=== PATIENT | female | born 1995 | race Hispanic/Latino ===

== ENCOUNTER 2021-06-03 | Emergency (ER) | payer OTHER ==
[~2021-06-03] VITALS: Ht 162.6 cm; Wt 105.6 kg
[2021-06-03] MEDS ORDERED: GNP28TAB2 PO (00:14)
[2021-06-03 06:46] VITALS: BP 119/77
--- NOTE | 2021-06-03 07:19 | REPVR ---
PROCEDURE INFORMATION: Exam: US First Trimester, Transabdominal Exam date and time: 06/03/2021 5:58 AM Age: 26 years old Clinical indication: Lmp or gestational age (in weeks): 7; Antepartum complications; Bleeding; ; Additional info: [place] TECHNIQUE: Imaging protocol: Real-time transabdominal obstetrical ultrasound of the maternal pelvis and a first trimester , less than 14 weeks 0 days, with image documentation. COMPARISON: No relevant prior studies available. FINDINGS: Gestation: Single live intrauterine . Embryonic/ heart rate: heart rate 167 bpm. Extra-embryonic membranes/Placenta: Hypoechoic collection adjacent to the gestational sac measuring 1.9 x 0.7 x 1.4 cm, consistent with subchorionic hemorrhage. Amniotic fluid: Amniotic fluid is normal for gestational age. BIOMETRY: Gestational age (AUA): Ultrasound gestational age 7 weeks 5 days. Estimated due date (AUA): CHANDRA 01/15/2022. [place]-Rump length: Mean crown-rump length 1.4 cm. MATERNAL: Uterus: Uterus measures 10.0 x 4.8 x 6.5 cm. No myometrial mass. Cervix: Unremarkable. Right adnexa: Right ovary measures 5.3 x 4.1 x 3.9 cm and contains a 3.9 x 2.9 x 3.5 cm cyst. No adnexal mass. Left adnexa: Left ovary measures 3.1 x 1.4 x 1.1 cm and is unremarkable. No adnexal mass. Intraperitoneal space: No free fluid. IMPRESSION: 1. Single live IUP with ultrasound gestational age 7 weeks 5 days. 2. CHANDRA 01/15/2022. 3. Subchorionic hemorrhage measuring 1.9 x 0.7 x 1.4 cm. 4. Right ovarian cyst measuring 3.9 cm. Electronically signed by: Isai Saunders On 06/03/2021 07:18:13 AM
== END 2021-06-03 06:53 | disposition home or self-care (01) ==
LOC: M ED
DX: O20.0 Threatened abortion (principal); O20.8 Other hemorrhage in early pregnancy; O34.81 Maternal care for other abnormalities of pelvic organs, first trimester; Z3A.01 Less than 8 weeks gestation of pregnancy

== ENCOUNTER 2021-08-26 13:42 | Emergency (ER) | payer OTHER ==
[~2021-08-26] VITALS: Ht 162.6 cm; Wt 105.7 kg
[~2021-08-26 13:42] MED LIST: GNP28TAB2 PO
--- OUTSIDE RECORDS SUMMARY | 2021-08-26 13:48 | CCD ---
Author Author [facility] Organization [facility] Address Unknown Phone Unavailable Support Name Relationship Address Phone UE Next Of Kin Unknown Unavailable NEDA VALE Next Of Kin [address], [place] [id number] Re-disclosure Warning The records that you are about to access may contain information from federally-assisted alcohol or drug abuse programs. If such information is present, then the following federally mandated warning applies: This information has been disclosed to you from records protected by federal confidentiality rules (42 CFR part 2). The federal rules prohibit you from making any further disclosure of this information unless further disclosure is expressly permitted by the written consent of the person to whom it pertains or as otherwise permitted by 42 CFR part 2. A general authorization for the release of medical or other information is NOT sufficient for this purpose. The Federal rules restrict any use of the information to criminally investigate or prosecute any alcohol or drug abuse patient.The records that you are about to access may contain highly sensitive health information, the redisclosure of which is protected by Article 27-F of the [facility] Public Health law. If you continue you may have access to information: Regarding HIV / AIDS; Provided by facilities licensed or operated by the [facility] Office of Mental Health; or Provided by the [facility] Office for People With Developmental Disabilities. If such information is present, then the following [facility] mandated warning applies: This information has been disclosed to you from confidential records which are protected by state law. State law prohibits you from making any further disclosure of this information without the specific written consent of the person to whom it pertains, or as otherwise permitted by law. Any unauthorized further disclosure in violation of state law may result in a fine or snf sentence or both. A general authorization for the release of medical or other information is NOT sufficient authorization for further disc losure. Medications No Information Insurance Providers Payer name Policy type / Coverage type Policy ID Covered republican ID Covered republican's relationship to boone Policy Boone Plan Information [facility] [id number] [facility] [id number] [facility] HUMA[employer] - O/P [id number] 01 [id number] Problems, Conditions, and Diagnoses No Information Surgeries/Procedures No Information Results No Information Social History No Information
[2021-08-26 20:52] LABS: RSV AMPLIFICATION NEGATIVE (NEGATIVE)
--- OUTSIDE RECORDS SUMMARY | 2021-08-26 21:49 | CCD ---
Author Author [facility] Organization [facility] Address Unknown Phone Unavailable Support Name Relationship Address Phone UE Next Of Kin Unknown Unavailable NEDA VALE Next Of Kin [address], [place] [id number] Re-disclosure Warning The records that you are [...] is protected by Article 27-F of the [facility] Public Health law. If you continue you may have access to information: Regarding HIV / AIDS; Provided by facilities licensed or operated by the [facility] Office of Mental Health; or Provided by the [facility] Office for People With Developmental Disabilities. If such information is present, then the following [facility] mandated warning applies: This information has [...] law may result in a fine or longterm sentence or both. A general authorization for the release of medical or other information is NOT sufficient authorization for further disc losure. Medications No Information Insurance Providers Payer name Policy type / Coverage type Policy ID Covered alliance party ID Covered alliance party's relationship to boone Policy Boone Plan Information [facility] [id number] [facility] [id number] [facility] [employer] - O/P [id number] 01 [id number] Problems, Conditions, and Diagnoses No Information Surgeries/Procedures No Information Results No Information Social History No Information
[2021-08-26 21:58] VITALS: O2SAT 97
[2021-08-26] MEDS ORDERED: ASPI81TA26 PO (22:25)
[2021-08-26 23:06] VITALS: BP 119/61
--- NOTE | 2021-08-26 23:26 | REPVR ---
PROCEDURE INFORMATION: Exam: XR Chest Exam date and time: 08/26/2021 10:40 PM Age: 26 years old Clinical indication: Cough; Additional info: Covid +, cough, SOB TECHNIQUE: Imaging protocol: XR of the chest. Views: 1 view. COMPARISON: No relevant prior studies available. FINDINGS: Lungs: Degree of lung inflation is normal. No evidence of pulmonary edema. No focal consolidation or parenchymal lung mass. Pleural spaces: No pleural effusion or pneumothorax. Heart/Mediastinum: Cardiac silhouette appears normal. No adenopathy or hilar mass. Bones/joints: Osseous structures show no concerning abnormality. IMPRESSION: No acute or focal cardiopulmonary process. Electronically signed by: Med Romero On 08/26/2021 23:26:06 PM
== END 2021-08-26 23:11 | disposition home or self-care (01) ==
LOC: M ED 13:42
DX: O98.512 Other viral diseases complicating pregnancy, second trimester (principal); U07.1 COVID-19; Z3A.19 19 weeks gestation of pregnancy; Z20.822 Contact with and (suspected) exposure to COVID-19; O99.512 Diseases of the respiratory system complicating pregnancy, second trimester

== ENCOUNTER → 2021-12-17 | Outpatient (CLI) | payer OTHER ==
[~2021-12-17] MED LIST changes: +ASPI81TA26 PO
== END ==
LOC: M RAD 10:21
PROVIDERS: ATTEND Obstetrics & Gynecology
DX: O99.213 Obesity complicating pregnancy, third trimester (principal); E66.9 Obesity, unspecified; Z3A.35 35 weeks gestation of pregnancy

== ENCOUNTER 2022-01-10 05:14 | Inpatient (IN) | payer OTHER ==
[2022-01-10] VITALS (31 sets, daily range): BP systolic 103–154; BP diastolic 56–99
[~2022-01-10] VITALS: Ht 162.6 cm; Wt 116.8 kg
[2022-01-10] MEDS ORDERED: FAMO40TA3 PO (05:35)
[2022-01-10 08:08] LABS: HEMATOCRIT 35.5 % (36.0-47.0); HEMOGLOBIN 11.9 g/dl (12.0-15.5); MEAN CORPUSCULAR HEMOGLOBIN 31.6 pg (27.0-33.0); MEAN CORPUSCULAR HGB CONC 33.5 g/dl (32.0-36.5); MEAN CORPUSCULAR VOLUME 94.2 fl (80.0-96.0); PLATELET COUNT, AUTOMATED 208 10^3/uL (150-450); RED BLOOD COUNT 3.77 10^6/uL (4.00-5.40); WHITE BLOOD COUNT 7.9 10^3/uL (4.0-10.0)
[2022-01-10] MEDS ORDERED: LIDOCAINE 1% MDV 20ML VIAL INFIL PRN (09:45)
[2022-01-10] MEDS ORDERED: OXYTOCIN DRIP 30 UNITS in IV 1 EA IV PRN ×4 (09:45)
[2022-01-10] MEDS ORDERED: CARBOPROST TROMETHAMINE 250 MCG/ML AMP IM PRN (09:45)
[2022-01-10] MEDS ORDERED: METHYLERGONOVINE MALEATE 0.2 MG/ML VIAL (J2210) IM PRN (09:45)
[2022-01-10] MEDS ORDERED: TRANEXAMIC ACID INJection 1,000 MG in NS 100 ML IV PRN (09:45)
[2022-01-10] MEDS ORDERED: OXYTOCIN DRIP 30 UNITS in IV 1 EA IV SCH (13:30)
[2022-01-10] MEDS: LR 1,000 ML IV SCH (14:58)
[2022-01-10] MEDS ORDERED: PROMETHAZINE INJ 25 MG/ML VIAL (J2550) IV ONE (23:20)
[2022-01-10] MEDS ORDERED: BUTORPHANOL 2 MG/ML INJ (J0595) IV ONE (23:20)
[2022-01-11] VITALS (9 sets, daily range): BP systolic 102–133; BP diastolic 55–92
[2022-01-11] MEDS ORDERED: FENTANYL 2MCG/ML ROPIVACAINE 0.2% IN 0.9% NACL 100ML IVBAG As Ordered ONE (00:07)
[2022-01-11] MEDS ORDERED: REFRIGERATOR IV KEYS XX PRN (00:25)
[2022-01-11] MEDS ORDERED: EPIDURAL COMMENT XX SCH (00:25)
[2022-01-11] MEDS ORDERED: ePHEDrine SULFATE 25 MG/5 ML(5MG/ML) SYRINGE IV PRN (00:25)
[2022-01-11] MEDS ORDERED: NALOXONE INJ 0.4MG/1ML VIAL (J2310 PER 1MG) IV PRN (00:25)
[2022-01-11] MEDS ORDERED: ONDANSETRON 4MG/2ML VIAL IV PRN ×2 (00:25→05:20)
[2022-01-11] MEDS ORDERED: diphenhydrAMINE 50MG/ML VIAL (J1200) IV PRN (00:25)
[2022-01-11] MEDS ORDERED: LACTATED RINGER'S 1000 ML IV PRN (00:25)
[2022-01-11] MEDS ORDERED: EPIDURAL/PCA KEYS XX PRN (00:25)
[2022-01-11] MEDS ORDERED: FENTANYL/ROPIVACAINE/NACL BAG 100 ML EPIDURAL SCH (00:25)
[2022-01-11] MEDS: LR 1,000 ML IV SCH (00:37)
[2022-01-11] MEDS ORDERED: ACETAMINOPHEN TAB 650MG DOSE (2X325MG) PO PRN ×2 (05:00→05:20)
[2022-01-11] MEDS ORDERED: ACETAMINOPHEN 500 MG TAB PO PRN ×2 (05:00→05:20)
[2022-01-11] MEDS ORDERED: MEASLES,MUMPS,RUBELLA VACCINE INJ (MMR-II) (90707) SC SCH ×2 (05:00→05:20)
[2022-01-11] MEDS ORDERED: DOCUSATE SODIUM 100MG CAPSULE PO PRN (05:00)
[2022-01-11] MEDS ORDERED: ANUSOL HC CREAM 30GM TOP PRN ×2 (05:00→05:20)
[2022-01-11] MEDS ORDERED: IBUPROFEN 600MG TAB PO PRN (05:00)
[2022-01-11] MEDS ORDERED: OXYTOCIN DRIP 30 UNITS in IV 1 EA IV SCH ×8 (05:00→05:20)
[2022-01-11] MEDS ORDERED: RHOGAM 300 MCG (1500 IU) INJ (J2790) IM SCH ×2 (05:00→05:20)
[2022-01-11] MEDS ORDERED: IBUPROFEN 800 MG TAB PO PRN (05:00)
[2022-01-11] MEDS ORDERED: DIBUCAINE 1% OINTMENT 30GM TOP PRN ×2 (05:00→05:20)
[2022-01-11] MEDS ORDERED: METHYLERGONOVINE MALEATE 0.2 MG TAB PO PRN (05:20)
[2022-01-11] MEDS ORDERED: PRENATAL VITAMINS CHEWABLE TABLET PO SCH (09:00)
[2022-01-11] MEDS: PRENATAL VITAMINS CHEWABLE TABLET PO SCH (09:06)
[2022-01-11] MEDS: IBUPROFEN 600MG TAB PO PRN ×2 (09:07→17:24)
[2022-01-11] MEDS: DOCUSATE SODIUM 100MG CAPSULE PO SCH ×2 (09:07→20:02)
[2022-01-12] MEDS: IBUPROFEN 800 MG TAB PO PRN ×3 (00:37→20:50)
[2022-01-12 06:02] VITALS: BP 101/54
[2022-01-12] MEDS ORDERED: COLA100C5 PO (07:12)
[2022-01-12] MEDS ORDERED: IBUP-1022 PO (07:12)
[2022-01-12] MEDS: PRENATAL VITAMINS CHEWABLE TABLET PO SCH (08:20)
[2022-01-12] MEDS: DOCUSATE SODIUM 100MG CAPSULE PO SCH ×2 (08:20→20:50)
[2022-01-12 18:00] VITALS: BP 114/69
== END 2022-01-12 21:30 | disposition home or self-care (01) | DRG 807 ==
LOC: M LDO 05:14 → M LDI 06:56 → M OBS 01-11 08:20
PROVIDERS: ADMIT Obstetrics & Gynecology; ATTEND Obstetrics & Gynecology
PROC: 10E0XZZ Delivery of Products of Conception, External Approach (ICD-10-PCS; principal; 2022-01-11)
PROC: 0KQM0ZZ Repair Perineum Muscle, Open Approach (ICD-10-PCS; 2022-01-11)
DX: O70.1 Second degree perineal laceration during delivery (principal); Z37.0 Single live birth; Z3A.39 39 weeks gestation of pregnancy

== ENCOUNTER → 2022-12-05 | Outpatient (REF) | payer OTHER ==
[~2022-12-05] MED LIST changes: +COLA100C5 PO; +FAMO40TA3 PO; +IBUP-1022 PO
== END ==
LOC: M LAB REF 16:34
PROVIDERS: ATTEND Physician Assistant
DX: R07.0 Pain in throat (principal)

== ENCOUNTER 2024-04-01 08:45 | Emergency (ER) | payer OTHER ==
[~2024-04-01] VITALS: Ht 162.6 cm; Wt 104.0 kg
[~2024-04-01 08:45] MED LIST changes: +MULTTAB20 PO; +ONDA-284 PO; +PREN1CHW6 PO; +URSO300C3 PO
[2024-04-01] MEDS: ONDANSETRON 4MG ORAL DISINTEGRATING TAB PO STA (10:17)
[2024-04-01] MEDS: MORPHINE 2 MG/ML 1ML VIAL IV ONE (11:42)
[2024-04-01 11:51] LABS: BASO % 0.3 % (0.0-1.0); EOS % 0.1 % (0.0-3.0); HEMATOCRIT 39.1 % (36.0-47.0); HEMOGLOBIN 12.9 g/dl (12.0-15.5); LYMPH # 0.9 10^3/uL (1.5-5.0); LYMPH % 10.3 % (24.0-44.0); MEAN CORPUSCULAR HEMOGLOBIN 31.5 pg (27.0-33.0); MEAN CORPUSCULAR VOLUME 95.4 fl (80.0-96.0); MONO # 0.4 10^3/uL (0.0-0.8); MONO % 3.8 % (2.0-8.0); NEUTROPHILS # 7.7 10^3/uL (1.5-8.5); NEUTROPHILS % 85.2 % (36.0-66.0); PLATELET COUNT, AUTOMATED 234 10^3/uL (150-450); WHITE BLOOD COUNT 9.1 10^3/uL (4.0-10.0)
[2024-04-01 12:17] LABS: AMYLASE 1410 U/L (30-118)
[2024-04-01 12:31] LABS: ALBUMIN 3.2 G/DL (3.2-5.2); ALKALINE PHOSPHATASE 79 U/L (46-116); ALT/SGPT 193 U/L (7.0-40); AST/SGOT 202 U/L (<34); BILIRUBIN,DIRECT 0.5 MG/DL (<0.4); BLOOD UREA NITROGEN 6 MG/DL (9-23); CALCIUM LEVEL 8.8 MG/DL (8.5-10.1); CARBON DIOXIDE LEVEL 25 MMOL/L (20-31); CHLORIDE LEVEL 107 MMOL/L (98-107); CREATININE FOR GFR 0.44 MG/DL (0.55-1.30); GLOMERULAR FILTRATION RATE > 60.0 (>60); GLUCOSE, FASTING 117 MG/DL (60-100); LIPASE > 3500 U/L (12-53); POTASSIUM SERUM 4.4 MMOL/L (3.5-5.1); SODIUM LEVEL 141 MMOL/L (136-145); TOTAL PROTEIN 6.9 G/DL (5.7-8.2)
[2024-04-01] MEDS: METOCLOPRAMIDE INJ 10MG/2ML VIAL IV ONE (13:28)
[2024-04-01] MEDS: fentaNYL 100 MCG/2 ML INJECTION IV ONE ×2 (13:29→16:33)
[2024-04-01] MEDS: MAALOX 30 ML SUSP *UDC PO ONE (16:33)
[2024-04-01] MEDS: NS 1,000 ML IV ONE (17:40)
[2024-04-01] MEDS: LR 1,000 ML IV SCH (19:15)
[2024-04-01] MEDS: LR 1,000 ML IV ONE (19:37)
[2024-04-02] MEDS ORDERED: ACET500P3 PO (01:49)
[2024-04-02] MEDS ORDERED: ONDA-284 PO (01:49)
[2024-04-02] MEDS ORDERED: URSO300C3 PO (01:49)
[2024-04-02] MEDS ORDERED: HOME MED LIST COMPLETE! XX SCH (01:50)
[2024-04-02] MEDS: ONDANSETRON 4MG 2ML VIAL IV PRN (01:58)
[2024-04-02] MEDS: MORPHINE 2 MG/ML 1ML VIAL IV PRN (01:58)
[2024-04-02 02:28] VITALS: BP 137/81; TEMP 97.7; O2SAT 98
[2024-04-02] MEDS ORDERED: HEPARIN SOD (PORCINE) 5000UNITS/ML 1ML VIAL/SYRINGE SC SCH (09:00)
== END 2024-04-02 02:40 | disposition short-term general hospital (02) ==
LOC: M ED 08:45
DX: O99.612 Diseases of the digestive system complicating pregnancy, second trimester (principal); K80.63 Calculus of gallbladder and bile duct with acute cholecystitis with obstruction; K85.10 Biliary acute pancreatitis without necrosis or infection; J45.909 Unspecified asthma, uncomplicated; Z87.19 Personal history of other diseases of the digestive system; Z3A.21 21 weeks gestation of pregnancy; Z79.83 Long term (current) use of bisphosphonates; Z79.899 Other long term (current) drug therapy
CPT/HCPCS: 74181; 76705; 80048; 80076; 81001; 82150; 83690; 85025; 96365; 96366; 96375; 96376; 99284; J2405; J2765; J3010